=== PATIENT | male | born 1970 | race Native Hawaiian/Other Pacific Islander ===

== ENCOUNTER 2021-12-01 11:25 | Emergency (ER) | payer OTHER ==
[~2021-12-01] VITALS: Ht 175.3 cm; Wt 137.9 kg
[2021-12-01 12:02] VITALS: BP 150/102
[2021-12-01] MEDS ORDERED: HYDR-4798 PO (12:07)
[2021-12-01] MEDS ORDERED: CLIN300C8 PO (12:07)
[2021-12-01] MEDS ORDERED: cefTRIAXone SOD 1,000 MG VL IM ONE (12:15)
[2021-12-01] MEDS ORDERED: HYDROcodone-ACET 10/325MG TAB PO ONE (12:15)
== END 2021-12-01 13:04 | disposition home or self-care (01) ==
LOC: ER 11:25
DX: K04.7 Periapical abscess without sinus (principal); E66.01 Morbid (severe) obesity due to excess calories; Z68.41 Body mass index [BMI] 40.0-44.9, adult
CPT/HCPCS: 96372; 99283; J0696